=== PATIENT | female | born 1965 | race Caucasian/White ===

== ENCOUNTER 2021-04-25 00:49 | Emergency (ER) | payer SELFPAY ==
--- NOTE | ~2021-04-25 | XR_ITS ---
EXAMINATION: XR chest 2V 04/25/2021 01:21 INDICATION: Chest pain and cough PROCEDURE: PA and lateral views of the chest COMPARISON: 05/28/2012 FINDINGS: The lungs are clear. The cardiomediastinal silhouette is within normal limits. There are no pleural effusions. There is no pneumothorax suspected. IMPRESSION: 1: NO ACUTE CARDIOPULMONARY DISEASE. Reviewed, dictated and finalized at location A.
[2021-04-25 00:53] VITALS: BP 154/93; PULSE 92; RESP 16; TEMP 36.9; O2SAT 98
--- NOTE | 2021-04-25 00:56 | ECG_ITS ---
Measurements Intervals [place] Rate: 71 P: 57 NC: 180 QRS: 44 QRSD: 89 T: 41 QT: 370 QTc: 402 Interpretive Statements SINUS RHYTHM INCOMPLETE RIGHT BUNDLE BRANCH BLOCK NONSPECIFIC T-WAVE ABNORMALITY- ANT/INF LEADS BORDERLINE ECG Electronically Signed On 04-25-2021 6:29:05 CDT by Riley Fuchs D.O.
[2021-04-25 01:14] LABS: Basophils Absolute Auto 0.1 K/mm3 (0.0-0.1); Basophils Percent Auto 0.9 % (0.2-1.2); Eosinophils Percent Auto 6.9 % (0-4.4); Hematocrit 44.1 % (37.0-47.0); Immature Granulocyte Absolute 0.12 K/mm3 (0.00-0.031); Immature Granulocyte Percent A 0.9 % (0-0.5); Lymphocytes Absolute Auto 3.72 K/mm3 (0.9-3.2); Mean Corpuscular HGB Conc 31.7 g/dl (32-36); Mean Corpuscular Hemoglobin 29.4 pg (26-34); Mean Corpuscular Volume 92.5 fl (80-100); Mean Platelet Volume 9.2 fl (7.4-10.4); Monocytes Absolute Auto 1.1 K/mm3 (0.1-0.6); Monocytes Percent Auto 7.9 % (2.6-8.5); Neutrophils Absolute Auto 7.8 K/mm3 (1.3-6.7); Neutrophils Percent Auto 56.4 % (45.5-73.1); Platelet Count Result 328 k/mm3 (150-375); Red Blood Count 4.77 M/mm3 (4.2-5.4); Red Cell Distribution Width 13.7 % (11.5-14.5); White Blood Count 13.8 K/mm3 (4.5-10.0)
[2021-04-25 01:29] LABS: Partial Thromboplastin Time 28.4 SECONDS (22.3-36.8)
[2021-04-25 01:32] LABS: Anion Gap 6 mmol/L (8-16); Blood Urea Nitrogen 14 mg/dL (7-17); Calcium 9.5 mg/dL (8.4-10.2); Carbon Dioxide 31 mmol/L (22-30); Chloride 105 mmol/L (98-107); Estimated Glomerular Filt Rate > 60; Glucose 114 mg/dL (65-110); Potassium 3.9 mmol/L (3.4-5.0); Sodium 142 mmol/L (137-145)
[2021-04-25 01:44] LABS: Troponin I < 0.012 ng/mL (0.000-0.034)
[2021-04-25 02:09] LABS: INR 0.9; Prothrombin Time 12.5 Seconds (11.1-14.7)
[2021-04-25 02:50] VITALS: BP 149/89; PULSE 87; RESP 16; O2SAT 100
--- NOTE | 2021-04-25 04:21 | PC.NURSE ---
pt back in triage complaining her cough has increased and is feeling more sob. rechecking pt's vitals at this time.
[2021-04-25 04:22] VITALS: BP 154/89; PULSE 88; RESP 22; O2SAT 98
--- NOTE | 2021-04-25 04:59 | PC.NURSE ---
Pt refused 2nd troponin. States she is not here for chest pain .
--- NOTE | 2021-04-25 05:21 | ED.BACK ---
HPI - Back Pain/Injury General Chief Complaint: Chest Pain Stated Complaint: congestion, cough, chest tightness Time Seen by Provider: 04/25/21 04:56 Source: patient Mode of arrival: ambulatory Limitations: no limitations History of Present Illness HPI Narrative: This is a 56 year old female who presents for evaluation of wheezing and coughing. Patient states 1 month ago she developed sinus drainage and congestion. This progressed to coughing and wheezing. Her cough has gradually worsened and it has been severe over the past week. She feels short of breath. She denies chest pain, fever, nausea or vomiting. She denies leg swelling or calf pain. She has not tried any medication over the counter. Related Data Allergies Allergy/AdvReac Type Severity Reaction Status Date / Time aspirin Allergy Intermediate SHAKING Verified 04/13/12 22:18 Review of Systems Review of Systems: All systems reviewed & are unremarkable except as noted in HPI and below PMFSH Past Medical History Medical History (Updated 04/25/21 @ 05:25 by Ericka Prince MD) Hypertension Surgical History Surgical History (Updated 04/25/21 @ 05:25 by Ericka Prince MD) No pertinent past surgical history Social History Social History (Updated 04/25/21 @ 05:25 by Ericka Prince MD) Smoking status: Never smoker Exam Const: General: alert Orientation/consciousness: patient oriented x3 Other: patient constantly coughing HENMT: Head: normal to inspection Eyes: EOM: EOMs intact bilaterally Chest: Chest palpation & inspection: normal inspection of the chest Resp: Effort & Inspection: normal respiratory effort, not labored and not tachypneic Auscultation: wheezes expiratory wheezes and scattered wheezes Cardio: Rate: regular rate Rhythm: regular rhythm GI: GI Palp: Yes Soft to palpation, No Tenderness to palpation present (GI) and No Guarding due to palpation present (GI) Auscultation: normal bowel sounds Skin: General skin exam: normal color Rashes: no rashes Neuro: General: patient oriented x3 and moves all extremities Psych: Mental Status: mental status grossly normal Affect: normal affect Course Vital Signs Vital signs: Vital Signs Temperature 98.5 F 04/25/21 00:53 Pulse Rate 92 04/25/21 00:53 Respiratory Rate 16 04/25/21 00:53 Blood Pressure 154/93 H 04/25/21 00:53 Pulse Oximetry 98 04/25/21 00:53 Temperature 98.5 F 04/25/21 00:53 Pulse Rate 88 04/25/21 04:22 Respiratory Rate 22 H 04/25/21 04:22 Blood Pressure 154/89 H 04/25/21 04:22 Pulse Oximetry 98 04/25/21 04:22 MDM - Back Pain/Injury Lab Data Result diagrams: 04/25/21 01:05 04/25/21 01:05 Labs: Lab Results 04/25/21 04/25/21 04/25/21 Range/Units 01:05 01:05 01:05 WBC 13.8 H (4.5-10.0) K/mm3 RBC 4.77 (4.2-5.4) M/mm3 Hgb 14.0 (12.0-15.0) g/dL Hct 44.1 (37.0-47.0) % MCV 92.5 (80-100) fl MCH 29.4 (26-34) pg MCHC 31.7 L (32-36) g/dl RDW 13.7 (11.5-14.5) % Plt Count 328 (150-375) k/mm3 MPV 9.2 (7.4-10.4) fl Immature Gran % (Auto) 0.9 H (0-0.5) % Neut % (Auto) 56.4 (45.5-73.1) % Lymph % (Auto) 27.0 (18.3-44.2) % [place] % (Auto) 7.9 (2.6-8.5) % Eos % (Auto) 6.9 H (0-4.4) % Baso % (Auto) 0.9 (0.2-1.2) % Lymph # (Auto) 3.72 H (0.9-3.2) K/mm3 [place] # (Auto) 1.1 H (0.1-0.6) K/mm3 Eos # (Auto) 1.0 H (0-0.3) K/mm3 Baso # (Auto) 0.1 (0.0-0.1) K/mm3 Abs Immat Gran (auto) 0.12 H (0.00-0.031) K/mm3 Absolute Neuts (auto) 7.8 H (1.3-6.7) K/mm3 Absolute Nucleated RBC 0.0 (0.0-0.012) K/mm3 Nucleated RBC % 0.0 (0.0-0.2) % PT 12.5 (11.1-14.7) Seconds INR 0.9 APTT 28.4 (22.3-36.8) SECONDS Sodium 142 (137-145) mmol/L Potassium 3.9 (3.4-5.0) mmol/L Chloride 105 (98-107) mmol/L Carbon Dioxide 31 H (22-30) mmol/L Anion Gap 6 L (8-16) mmol/L
--- NOTE | 2021-04-25 05:29 | ED.GENADULT ---
HPI - General Adult General Chief complaint: Chest Pain Stated complaint: congestion, cough, chest tightness Time Seen by Provider: 04/25/21 04:56 Source: patient and RN notes reviewed Mode of arrival: ambulatory Limitations: no limitations History of Present Illness HPI narrative: This is a 56 year old female who presents for evaluation of wheezing and coughing. Patient states 1 month ago she developed sinus drainage and congestion. This progressed to coughing and wheezing. Her cough has gradually worsened and it has been severe over the past week. She feels short of breath. She denies chest pain, fever, nausea or vomiting. She denies leg swelling or calf pain. She has not tried any medication over the counter. Related Data Allergies Allergy/AdvReac Type Severity Reaction Status Date / Time aspirin Allergy Intermediate SHAKING Verified 04/13/12 22:18 Review of Systems Review of Systems: All systems reviewed & are unremarkable except as noted in HPI and below Constitutional: Constitutional: Denies chills and Denies fever(s) ENT: Denies vertigo, Denies epistaxis and Reports nasal congestion Cardiovascular: Cardiovascular: Denies chest pain and Denies radiating jaw, neck or arm pain Respiratory: Respiratory: Reports cough, Reports dyspnea and Reports wheezing Gastrointestinal: Gastrointestinal: Denies abdominal pain, Denies nausea and Denies vomiting PMFSH Past Medical History Medical History Hypertension Surgical History Surgical History No pertinent past surgical history Social History Social History (Updated 04/25/21 @ 05:25 by Ericka Prince MD) Smoking status: Never smoker Exam Const: General: no acute distress and alert Orientation/consciousness: patient oriented x3 Eyes: EOM: EOMs intact bilaterally Chest: Chest palpation & inspection: normal inspection of the chest Resp: Effort & Inspection: normal respiratory effort, not labored, no retractions and not tachypneic Auscultation: wheezes scattered wheezes Cardio: Rate: regular rate Rhythm: regular rhythm Heart sounds: no murmurs GI: GI Palp: Yes Soft to palpation, No Tenderness to palpation present (GI) and No Guarding due to palpation present (GI) Auscultation: normal bowel sounds Skin: General skin exam: normal color Rashes: no rashes Neuro: General: patient oriented x3, moves all extremities and CN's II-XI intact bilaterally Course Reevaluation(s) Reevaluation #1: PAtient states she feels better. I Discussed discharge plan and management. Date: 04/25/21 Time: 05:45 Vital Signs Vital signs: Vital Signs Temperature 98.5 F 04/25/21 00:53 Pulse Rate 92 04/25/21 00:53 Respiratory Rate 16 04/25/21 00:53 Blood Pressure 154/93 H 04/25/21 00:53 Pulse Oximetry 98 04/25/21 00:53 Temperature 98.5 F 04/25/21 00:53 Pulse Rate 77 04/25/21 06:59 Respiratory Rate 22 H 04/25/21 06:59 Blood Pressure 146/78 H 04/25/21 06:59 Pulse Oximetry 98 04/25/21 06:59 Medical Decision Making Vital Signs Vital Signs: Vital Signs Temperature 98.5 F 04/25/21 00:53 Pulse Rate 92 04/25/21 00:53 Respiratory Rate 16 04/25/21 00:53 Blood Pressure 154/93 H 04/25/21 00:53 Pulse Oximetry 98 04/25/21 00:53 Temperature 98.5 F 04/25/21 00:53 Pulse Rate 77 04/25/21 06:59 Respiratory Rate 22 H 04/25/21 06:59 Blood Pressure 146/78 H 04/25/21 06:59 Pulse Oximetry 98 04/25/21 06:59 Lab Data Result diagrams: 04/25/21 01:05 04/25/21 01:05 Labs: Lab Results 04/25/21 04/25/21 04/25/21 Range/Units 01:05 01:05 01:05 WBC 13.8 H (4.5-10.0) K/mm3 RBC 4.77 (4.2-5.4) M/mm3 Hgb 14.0 (12.0-15.0) g/dL Hct 44.1 (37.0-47.0) % MCV 92.5 (80-100) fl MCH 29.4 (26-34) pg MCHC 31.7 L (32-36) g/dl RDW 13.7 (11
[2021-04-25] MEDS: BENZONATATE 100 MG CAPSULE PO (05:41)
[2021-04-25] MEDS: predniSONE 20 MG TABLET 60 MG PO (05:41)
[2021-04-25] MEDS: IPRATROPIUM BR 0.02% INH SOLN 0.5 MG/2.5 ML VIAL INHALATION (05:44)
[2021-04-25] MEDS: ALBUTEROL SULFATE NEB 2.5 MG/0.5 ML INH 5 MG INHALATION (05:45)
[2021-04-25 05:48] VITALS: PULSE 72; RESP 20
[2021-04-25 05:52] VITALS: PULSE 72; RESP 20
[2021-04-25 06:59] VITALS: BP 146/78; PULSE 77; RESP 22; O2SAT 98
== END 2021-04-25 06:59 | disposition home or self-care (01) ==
PROVIDERS: Emergency Provider General Practice
DX: J20.9 Acute bronchitis, unspecified (principal); J06.9 Acute upper respiratory infection, unspecified; D72.829 Elevated white blood cell count, unspecified; I10 Essential (primary) hypertension; I45.10 Unspecified right bundle-branch block; R94.31 Abnormal electrocardiogram [ECG] [EKG]
CPT/HCPCS: 36415; 71046; 80048; 84484; 85025; 85610; 85730; 88108; 93005; 94640; 99284; A9270; J7512

== ENCOUNTER 2022-08-29 02:56 | Emergency (ER) | payer OTHER, SELFPAY ==
[2022-08-29 03:05] VITALS: BP 154/92; PULSE 88; RESP 24; TEMP 36.3; O2SAT 96
[2022-08-29 03:28] VITALS: BP 147/97; PULSE 86; RESP 17; O2SAT 95
--- NOTE | 2022-08-29 03:30 | ECG_ITS ---
Measurements Intervals [place] Rate: 74 P: 45 [place]: 151 QRS: 35 QRSD: 86 T: 33 QT: 318 QTc: 354 Interpretive Statements SINUS RHYTHM NONSPECIFIC ST & T-WAVE ABNORMALITY- INFERIOR LEADS BORDERLINE ECG COMPARED TO ECG 04/25/2021 00:59:17 NO SIGNIFICANT CHANGES Electronically Signed On 08-29-2022 8:59:29 [employer] by Riley Fuchs D.O.
[2022-08-29 04:00] VITALS: BP 142/88; PULSE 82; RESP 20; TEMP 36.8; O2SAT 96
--- NOTE | 2022-08-29 04:29 | ED.DENTAL ---
HPI - Dental/Oral General Chief complaint: Shortness of Breath/Dyspnea Stated complaint: SOB Time Seen by Provider: 08/29/22 03:49 History of Present Illness HPI Narrative: This is a 57-year-old female with past medical history of COPD, presenting the emergency department asking for evaluation of right jaw swelling. The patient states this has been going on for 15 months worse in the last few days. Patient brings with her paperwork from nearby emergency department where she has been seen 4 times in the past 5 days, with plan to follow-up with ENT and antibiotics. The patient states her antibiotics are not helping. She has no other complaint Related Data Allergies Allergy/AdvReac Type Severity Reaction Status Date / Time aspirin Allergy Intermediate SHAKING Verified 04/13/12 22:18 Review of Systems Review of Systems: CONSTITUTIONAL: Denies fever, chills, or sweats. EYES: Denies visual changes, redness, or discharge. ENT: Denies rhinorrhea, congestion, sore throat, or otalgia. CARDIOVASCULAR: Denies chest pain, palpitations, or edema. RESPIRATORY: cough Denies dyspnea. GASTROINTESTINAL: Denies abdominal pain, nausea, vomiting, or diarrhea. GENITOURINARY: Denies dysuria or hematuria. SKIN: Denies rash or itching. MUSCULOSKELETAL: Denies back pain, joint pain, or myalgia. NEUROLOGIC: Denies headache, numbness, dizziness, or weakness. PSYCHIATRIC: Denies anxiety or depression. [facility] Past Medical History Medical History (Updated 08/29/22 @ 04:34 by Artem Cuadra MD) COPD (chronic obstructive pulmonary disease) Hypertension Surgical History Surgical History No pertinent past surgical history Social History Social History Smoking status: Never smoker Exam Narrative: GENERAL: Well-appearing, well-nourished, and in no acute distress. HEAD: Mild swelling of the right mandible, atraumatic. EYES: PERRLA and EOMI. ENT: Dental caries, poor dentition with erythema and swelling at the base of tooth number 31. nares clear, no rhinorrhea or epistaxis. Mucous membranes moist. Oropharynx without tonsillar hypertrophy exudate or other lesions. NECK: Supple. No adenopathy or masses. No carotid bruits or JVD CHEST: Transmitted upper airway sounds expiratory wheeze that appear to be consciously driven; lungs otherwise clear to auscultation. No respiratory distress. No other wheezes rales or rhonchi HEART: Regular rate and rhythm. No murmur heard. Normal peripheral pulses. ABDOMEN: Soft, nontender, nondistended, normal active bowel sounds. EXTREMITIES: Normal range of motion. No edema. SKIN: Warm, dry, no rash. NEURO: No focal deficits. Alert and oriented x3. PSYCH: Normal mood and affect. Course Course Emergency Course: 04:25 - On examination, it appears the patient is forcing herself to wheeze. Her exam is consistent with dental abscess and is not concerning for airway compromise. By my review of supplied documentation, the patient has had a significant work-up with plan for surgical evaluation later today. Will adjust antibiotics and discharge. Discussed return and emergency precautions including signs or symptoms of airway compromise and ACS. The patient voiced understanding is comfortable with the plan. All questions answered to her satisfaction. Vital Signs Vital signs: Vital Signs Temperature 97.4 F L 08/29/22 03:05 Pulse Rate 88 08/29/22 03:05 Respiratory Rate 24 H 08/29/22 03:05 Blood Pressure 154/92 H 08/29/22 03:05 Pulse Oximetry 96 08/29/22 03:05 Temperature 98.3 F 08/29/22 04:00 Pulse Rate 82 08/29/22 04:00 Respiratory Rate 20 08/29/22 04:00 Blood Pressure 142/88 H 08/29/22 04:00 Pulse Oximetry 96 08/29/22 04:00 Oxygen Delivery Room Air 08/29/22 03:28 MDM - Dental/Oral MDM Narrative Medical decision making narrative: Plan: Antibiotic adjustment,
== END 2022-08-29 04:44 | disposition home or self-care (01) ==
PROVIDERS: Emergency Provider Preventive Medicine Aerospace Medicine; PCP Physician Assistant
DX: K04.7 Periapical abscess without sinus (principal); J44.9 Chronic obstructive pulmonary disease, unspecified; I10 Essential (primary) hypertension; R94.31 Abnormal electrocardiogram [ECG] [EKG]
CPT/HCPCS: 93005; 99283